=== PATIENT | female | born 1980 | race Caucasian/White ===

== ENCOUNTER 2018-09-13 19:04 | Emergency (ER) | payer MEDICAID ==
[~2018-09-13] VITALS: Ht 180.3 cm; Wt 99.8 kg
--- NOTE | 2018-09-13 19:11 | NUR ---
ED Nurse Note: walked in to ED due to possible kidney stone. pt has pain on back that radiated to pelvic area for 3 weeks. seen by [facility] on 09/05/18. hx of kidney stone.
[2018-09-13] MEDS ORDERED: TAMSULOSIN HCL0.4 MG ORAL ×2 (19:12→20:50)
--- NOTE | 2018-09-13 19:28 | Emergency Room Report ---
History of Present Illness General Chief Complaint: General Complaint Source: Patient Present Illness HPI Patient present with complaints of right-sided flank pain radiation to the lower abdominal area Pain has been ongoing for the past 3 weeks now Patient was seen at [facility] about 10 days ago diagnosed with a kidney stone As the patient had blood in her urine however there has been no other imaging Patient saw her primary physician today And was sent into the ER for imaging Patient has pain localized to the flank area radiation to the lower abdomen Also increased nausea Denies any fall or trauma Allergies: Coded Allergies: SULFA (SULFONAMIDE ANTIBIOTICS) (Verified Allergy, Unknown, 09/13/18) Patient History Past Medical History: see triage record Pertinent Family History: none Last Menstrual Period: 08/25/18 Reviewed Nursing Documentation: PMH: Agreed; PSxH: Agreed Nursing Documentation-PMH Past Medical History: No History, Except For Hx Cardiac Problems: No - kidney stone Review of Systems All Other Systems: negative except mentioned in HPI Physical Exam Vital Signs Date Time Temp Pulse Resp B/P (MAP) Pulse Ox O2 Delivery O2 Flow Rate FiO2 09/13/18 19:07 98.2 82 18 110/72 98 Room Air Sp02 EP Interpretation: reviewed, normal General Appearance: well appearing, no apparent distress Head: normocephalic, atraumatic Eyes: bilateral eye PERRL, bilateral eye EOMI ENT: hearing grossly normal, normal pharynx, TMs + canals normal, uvula midline Neck: full range of motion, supple, no meningismus, no bony tend Respiratory: lungs clear, normal breath sounds, no rhonchi, no respiratory distress, no retraction, no accessory muscle use Cardiovascular #1: normal peripheral pulses, regular rate, rhythm, no edema, no gallop, no JVD, no murmur Gastrointestinal: normal bowel sounds, non tender, soft, no mass, no organomegaly, non-distended, no guarding, no hernia, no pulsatile mass, no rebound Genitourinary: no CVA tenderness - However subjective reports the right flank region Musculoskeletal: normal inspection Neurologic: oriented x3, responsive, 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, motor strength/ tone normal, sensory intact Psychiatric: mood/affect normal Skin: normal color, no rash, warm/dry, palpation normal Lymphatic: normal inspection, no adenopathy Medical Decision Making Diagnostic Impression: Primary Impression: Renal colic on right side Additional Impression: Ovarian cyst ER Course With the history exam and presentation, multiple differentials considered, including but not limited to appendicitis, gastritis, cholecystitis, diverticulitis Patient CT imaging does reveal a 5 mm distal ureteral stone there is some obstructive pathology to this Patient's pain is significantly improved urine sample does not show any obvious infection Patient reports that she had otherwise fairly extensive workup recently at [facility] however did not had imaging Given the patient's improvement and resolution of discomfort We discussed further inpatient care versus close outpatient follow-up patient reports that she feels better and will attempt outpatient follow-up Labs Test 09/13/18 19:30 Urine Color Pale yellow Urine Appearance Clear Urine pH 6 (4.5-8.0) Urine Specific [place] 1.020 (1.005-1.035) Urine Protein 1+ (NEGATIVE) Urine Glucose (UA) Negative (NEGATIVE) Urine Ketones Negative (NEGATIVE) Urine Blood 4+ (NEGATIVE) Urine Nitrite Negative (NEGATIVE) Urine Bilirubin Negative (NEGATIVE) Urine Urobilinogen Normal MG/DL (0.0-1.0) Urine Leukocyte Esterase 1+ (NEGATIVE) Urine RBC 5-10 /HPF (0 - 2) Urine WBC 0-2 /HPF (0 - 2) Urine Squamous Epithelial Cells Few /LPF (NONE/OCC) Urine Bacteria Occasional /HPF (NONE) Urine HCG, Qualitative Negative (NEGATIVE) CT/MRI/US Diagnostic Results CT/MRI/US Diagnostic Results : Impression CT abdomen pelvisImpression: Positive for 5 mm distal right ureteral calculus, located approximately 5 cm proximal to the ureterovesical junction. This results in only mild right hydronephrosis and hydroureter 3.7 right or ovarian cyst is benign and no further follow-up is necessary Last Vital Signs Date Time Temp Pulse Resp B/P (MAP) Pulse Ox O2 Delivery O2 Flow Rate FiO2 09/13/18 19:07 98.2 82 18 110/72 98 Room Air Status: improved Disposition: HOME, SELF-CARE Condition: Improved Scripts Acetaminophen With Codeine (T#3) (TYLENOL #3 TAB*) Y Tab 1 TAB ORAL Q8H PRN for For Pain, #12 TAB Prov: Radha Fox DO 09/13/18 Tamsulosin Hcl (TAMSULOSIN HCL*) 0.4 Mg Cap.er.24h 0.4 MG ORAL BEDTIME for 7 Days, CAP Prov: Radha Fox DO 09/13/18 Ibuprofen* (MOTRIN*) 600 Mg Tablet 600 MG ORAL Q8H PRN for For Pain, #20 TAB 0 Refills Prov: Radha Fox DO 09/13/18 Additional Instructions: Patient is provided with the discharge instructions notified to follow up with primary doctor in the next 2-3 days otherwise return to the er with any worsening symptoms. Please note that this report is being documented using [employer] technology. This can lead to erroneous entry secondary to incorrect interpretation by the dictating instrument. Radha Fox DO Sep 13, 2018 19:28
[2018-09-13] MEDS ORDERED: Ketorolac 60mg Inj IM ONE (19:30)
[2018-09-13 19:48] VITALS: BP 110/72
[2018-09-13 19:54] LABS: APPEARANCE,URINE CLEAR; BILIRUBIN, URINE NEGATIVE (NEGATIVE); GLUCOSE, URINE (UA) NEGATIVE (NEGATIVE); KETONES,URINE NEGATIVE (NEGATIVE); LEUKOCYTE ESTERASE ,URINE 1+ (NEGATIVE); NITRITE,URINE NEGATIVE (NEGATIVE); PH,URINE 6 (4.5-8.0); PROTEIN,URINE 1+ (NEGATIVE); UROBILINOGEN,URINE NORMAL MG/DL (0.0-1.0)
[2018-09-13 19:55] LABS: COLOR,URINE PALE YELLOW
[2018-09-13 20:49] VITALS: BP 108/75
[2018-09-13] MEDS ORDERED: ACETAMINOPHEN-1 EAC1 ORAL (20:50)
[2018-09-13] MEDS ORDERED: IBUPROFEN600 MG ORAL (20:50)
--- NOTE | 2018-09-13 20:55 | NUR ---
ER DISCHARGE NOTE: Patient is cleared to be discharged per ERMD, pt is aox4, on room air, with stable vital signs. pt was given dc and prescription instructions, pt was able to verbalize understanding, pt id band and removed without complications. pt is able to ambulate with steady gait. pt took all belongings.
--- NOTE | 2018-09-14 09:34 | Diagnostic Imaging Report ---
Indication: Right-sided flank pain radiating to the lower abdominal area, history of urinary calculi Technique: Spiral acquisitions obtained through the abdomen and pelvis. No oral or IV contrast utilized, per urinary stone protocol. Multiplanar reconstructions were generated. Total dose length product 973.57 mGycm. CTDIvol(s) 16.82 mGy. Dose reduction achieved using automated exposure control Comparison: none Findings: There is a 5 mm calculus within the distal right ureter, located approximately 5 cm proximal to the ureterovesical junction this results in mild right hydroureter, only minimal right hydronephrosis. There is no significant perinephric fat stranding. A 4 mm calculus is seen with in the right lower pole calyx. A tiny punctate calculus is seen in the upper pole collecting system on the left. No left ureteral calculi, hydronephrosis, or hydroureter demonstrated. Lack of IV contrast limits assessment of the renal parenchyma. No gross renal parenchymal mass or cyst demonstrated. Lack of IV contrast limits assessment of the other solid organs. The liver, gallbladder, bile ducts, pancreas, adrenals are unremarkable. The spleen demonstrates an accessory splenule, is otherwise unremarkable. There is a 3.7 cm right ovarian cyst. Uterus and left ovary are unremarkable. The appendix is normal. There is no evidence of diverticulosis or diverticulitis. No small bowel distention. No free or loculated intraperitoneal gas or fluid is evident. Distal esophagus, stomach, duodenum are unremarkable. The included lung bases are clear. The bones are unremarkable Impression: Positive for 5 mm distal right ureteral calculus, located approximately 5 cm proximal to the ureterovesical junction. This results in only mild right hydronephrosis and hydroureter 3.7 right or ovarian cyst is benign and no further follow-up is necessary The CT scanner at [facility] is accredited by the [employer] and the scans are performed using protocols designed to limit radiation exposure to as low as reasonably achievable to attain images of sufficient resolution adequate for diagnostic evaluation.
== END 2018-09-13 21:00 | disposition home or self-care (01) ==
LOC: EMR 19:50
DX: N20.1 Calculus of ureter (principal)
CPT/HCPCS: 74176; 81003; 81025; 96372; 99284

== ENCOUNTER 2018-09-17 09:48 | Emergency (ER) | payer MEDICAID ==
[~2018-09-17] VITALS: Ht 177.8 cm; Wt 99.8 kg
[~2018-09-17 09:48] MED LIST: ACETAMINOPHEN-1 EAC1 ORAL; IBUPROFEN600 MG ORAL; TAMSULOSIN HCL0.4 MG ORAL
[2018-09-17 09:54] VITALS: BP 122/72
[2018-09-17] MEDS ORDERED: Ketorolac 30mg Inj IV ONE (10:00)
[2018-09-17] MEDS ORDERED: Morphine Sulfate 4mg/ml Inj (IV USE ONLY) IVP ONE (10:00)
--- NOTE | 2018-09-17 10:03 | Emergency Room Report ---
History of Present Illness General Chief Complaint: Abdominal Pain Source: Patient, Medical Record (Villa Luke MD) Present Illness HPI Patient is a 38-year-old female who presented after increased right-sided flank pain associated with nausea and vomiting. Patient had prior history of kidney stones and had recent CT imaging which showed a UVJ stone approximately 6 mm. Patient reports having multiple episodes of nonbilious vomiting. She reports having some increased pain with urination. She is not currently taking antibiotics. Patient been taking Flomax as well as ibuprofen and Tylenol with codeine.Pain was severe in intensity sharp right-sided. Patient states that she been having associated vomiting. (Villa Luke MD) Allergies: Coded Allergies: SULFA (SULFONAMIDE ANTIBIOTICS) (Verified Allergy, Unknown, 09/13/18) Patient History Past Medical History: see triage record Last Menstrual Period: 08/30/18 Reviewed Nursing Documentation: PMH: Agreed; PSxH: Agreed (Villa Luke MD) Nursing Documentation-PMH Past Medical History: No History, Except For Hx Cardiac Problems: No - kidney stone (Villa Luke MD) Review of Systems All Other Systems: negative except mentioned in HPI (Villa Luke MD) Physical Exam Vital Signs Date Time Temp Pulse Resp B/P (MAP) Pulse Ox O2 Delivery O2 Flow Rate FiO2 09/17/18 09:54 97.7 85 16 122/72 100 Room Air Sp02 EP Interpretation: reviewed, normal General Appearance: alert, GCS 15, moderate distress, obese Head: atraumatic ENT: normal ENT inspection, hearing grossly normal, normal voice Neck: normal inspection, full range of motion, supple, no bony tend Respiratory: normal inspection, lungs clear, normal breath sounds, no respiratory distress, no retraction, no wheezing Cardiovascular #1: regular rate, rhythm, no edema Gastrointestinal: normal inspection, normal bowel sounds, non tender, soft, no guarding, no hernia Genitourinary: no CVA tenderness Musculoskeletal: normal inspection, back normal, normal range of motion Neurologic: normal inspection, alert, oriented x3, responsive, 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 Patient presented for flank pain. Differential diagnosis included was not limited to pneumonia, renal stone, rib fracture, pulmonary embolism, ulcer, enteritis, pyelonephritis among others. Because of complexity of patient's case laboratory testing and imaging studies were ordered.Laboratory testing showed normal white blood count. Patient was noted to have some increased right flank pain associate with nausea and vomiting. This may be due to patient 's recent onset of codeine use. Patient's was noted to have some bacteriuria and was started on IV antibiotics. Patient ultrasound showed no evidence of hydronephrosis and patient was noted to have improvement in her pain after medications. Patient was advised to continue ibuprofen and to follow-up with urology. Labs Test 09/17/18 10:05 09/17/18 10:55 09/17/18 11:25 White Blood Count 10.0 K/UL (4.8-10.8) Red Blood Count 4.86 M/UL (4.20-5.40) Hemoglobin 14.6 G/DL (12.0-16.0) Hematocrit 44.1 % (37.0-47.0) Mean Corpuscular Volume 91 FL (80-99) Mean Corpuscular Hemoglobin 30.0 PG (27.0-31.0) Mean Corpuscular Hemoglobin Concent 33.0 G/DL (32.0-36.0) Red Cell Distribution Width 10.9 % (11.6-14.8) Platelet Count 320 K/UL (150-450) Mean Platelet Volume 6.2 FL (6.5-10.1) Neutrophils (%) (Auto) 80.4 % (45.0-75.0) Lymphocytes (%) (Auto) 14.1 % (20.0-45.0) Monocytes (%) (Auto) 4.4 % (1.0-10.0) Eosinophils (%) (Auto) 0.6 % (0.0-3.0) Basophils (%) (Auto) 0.5 % (0.0-2.0) Prothrombin Time 10.5 SEC (9.30-11.50) Prothromb Time International Ratio 1.0 (0.9-1.1) Activated Partial Thromboplast Time 25 SEC (23-33) Sodium Level 137 MMOL/L (136-145) Potassium Level 4.0 MMOL/L (3.5-5.1) Chloride Level 103 MMOL/L (98-107) Carbon Dioxide Level 23 MMOL/L (21-32) Anion Gap 11 mmol/L (5-15) Blood Urea Nitrogen 14 mg/dL (7-18) Creatinine 1.2 MG/DL (0.55-1.30) Estimat Glomerular Filtration Rate 50.5 mL/min (>60) Glucose Level 135 MG/DL (74-106) Calcium Level 9.1 MG/DL (8.5-10.1) Total Bilirubin 0.4 MG/DL (0.2-1.0) Aspartate Amino Transf (AST/SGOT) 11 U/L (15-37) Alanine Aminotransferase (ALT/SGPT) 21 U/L (12-78) Alkaline Phosphatase 71 U/L (46-116) Total Protein 7.7 G/DL (6.4-8.2) Albumin 4.2 G/DL (3.4-5.0) Globulin 3.5 g/dL Albumin/Globulin Ratio 1.2 (1.0-2.7) Lipase 155 U/L (73-393) Urine Color Yellow Urine Appearance Slightly cloudy Urine pH 5 (4.5-8.0) Urine Specific [place] 1.025 (1.005-1.035) Urine Protein 2+ (NEGATIVE) Urine Glucose (UA) Negative (NEGATIVE) Urine Ketones 1+ (NEGATIVE) Urine Blood 5+ (NEGATIVE) Urine Nitrite Positive (NEGATIVE) Urine Bilirubin Negative (NEGATIVE) Urine Urobilinogen 1 MG/DL (0.0-1.0) Urine Leukocyte Esterase 1+ (NEGATIVE) Urine RBC 20-30 /HPF (0 - 2) Urine WBC 2-4 /HPF (0 - 2) Urine Squamous Epithelial Cells Occasional /LPF Urine Amorphous Sediment Few /LPF (NONE) Urine Bacteria Moderate /HPF (NONE) Urine HCG, Qualitative Negative (NEGATIVE) Lactic Acid Level 1.80 mmol/L (0.66-2.22) (Villa Luke MD) ER Course Patient had positive blood culture gram-positive cocci in cluster. I called patient and discussed findings. Patient had been seen here on 09/13 for kidney stone. Was seen here yesterday and noted to have UTI and is on antibiotics. Given history of kidney stone with hydronephrosis and UTI and positive blood culture I recommended that patient return today for IV antibiotics and admission. Patient agrees to plan (Ernst Aaron MD) Last Vital Signs Date Time Temp Pulse Resp B/P (MAP) Pulse Ox O2 Delivery O2 Flow Rate FiO2 09/17/18 09:54 97.7 85 16 122/72 100 Room Air Status: improved (Villa Luke MD) Disposition: HOME, SELF-CARE Condition: Stable Scripts Hydrocodone Bit/Acetaminophen 5-325* (NORCO 5-325*) 1 Each Tablet 1 TAB ORAL Q6H PRN for For Pain, #20 TAB 0 Refills Prov: Villa Luke MD 09/17/18 Cephalexin* (KEFLEX*) 500 Mg Capsule 500 MG ORAL EVERY 6 HOURS, #28 CAP Prov: Villa Luke MD 09/17/18 Villa Luke MD Sep 17, 2018 10:03 Ernst Aaron MD Sep 18, 2018 15:43
[2018-09-17 10:16] LABS: BASOPHILS % (AUTO) 0.5 % (0.0-2.0); EOSINOPHILS % (AUTO) 0.6 % (0.0-3.0); HEMATOCRIT 44.1 % (37.0-47.0); HEMOGLOBIN 14.6 G/DL (12.0-16.0); LYMPHOCYTES % (AUTO) 14.1 % (20.0-45.0); MEAN CORPUSCULAR VOLUME 91 FL (80-99); MONOCYTES % (AUTO) 4.4 % (1.0-10.0); NEUTROPHILS % (AUTO) 80.4 % (45.0-75.0); PLATELET COUNT 320 K/UL (150-450); RED BLOOD COUNT 4.86 M/UL (4.20-5.40); RED CELL DISTRIBUTION WIDTH 10.9 % (11.6-14.8)
[2018-09-17 10:26] LABS: ANION GAP 11 mmol/L (5-15); BLOOD UREA NITROGEN 14 mg/dL (7-18); CALCIUM 9.1 MG/DL (8.5-10.1); CARBON DIOXIDE 23 MMOL/L (21-32); CHLORIDE 103 MMOL/L (98-107); CREATININE 1.2 MG/DL (0.55-1.30); SODIUM 137 MMOL/L (136-145)
--- NOTE | 2018-09-17 10:26 | NUR ---
ED Nurse Note: PT. AAOX4. AMBULATORY. CAME IN TO ER DUE TO ABD PAIN SINCE THIS MORNING ON THE R LOWER QUADRANT ACCOMPANIED WITH N/V. DENIES DIARRHEA. WAS RECENTLY DIAGNOSED LAST TUESDAY WITH KIDNEY STONES. TOOK TYLENOL 3 AROUND 5AM BUT PAIN CAME BACK
--- NOTE | 2018-09-17 10:28 | NUR ---
ED Nurse Note: US AT THE BEDSIDE
[2018-09-17 10:39] LABS: ALANINE AMINOTRANSFERASE 21 U/L (12-78); ALBUMIN 4.2 G/DL (3.4-5.0); ALBUMIN/GLOBULIN RATIO 1.2 (1.0-2.7); ALKALINE PHOSPHATASE 71 U/L (46-116); ASPARTATE AMINO TRANSFERASE 11 U/L (15-37); BILIRUBIN,TOTAL 0.4 MG/DL (0.2-1.0)
--- NOTE | 2018-09-17 11:19 | Diagnostic Imaging Report ---
EXAM: US Abdomen Complete CLINICAL HISTORY: ABD PAIN TECHNIQUE: Real-time ultrasound of the abdomen (complete) with image documentation. COMPARISON: CT abdomen and pelvis dated 09/14/18 FINDINGS: Liver: Liver diameter of 14.85 cm. No visible parenchymal lesions. No intrahepatic biliary ductal dilatation. Gallbladder: Unremarkable. No gallstones. No wall thickening. No pericholecystic fluid. Common bile duct: Common bile duct diameter of 2 mm, within normal limits. Pancreas: Unremarkable as visualized. Pancreatic body and tail are obscured by bowel gas. Kidneys: Multiple shadowing echogenic foci throughout the right kidney, predominantly within the right renal pelvis, likely representing nonobstructing stones. Right kidney length 11.22 cm. Left kidney length 10.5 cm. Normal cortical thickness. No hydronephrosis. Spleen: Spleen diameter of 9.76 cm, within normal limits. Aorta: Visualized portions of the aorta appear unremarkable. Inferior vena cava: Visualized portions of the IVC appear unremarkable. Other findings: A 10.9 x 2.0 x 5.8 cm thin-walled anechoic structure in the left upper quadrant. IMPRESSION: 1. Multiple shadowing echogenic foci throughout the right kidney, likely representing nonobstructing stones. 2. A 10.9 x 2.0 x 5.8 cm thin-walled anechoic structure in the left upper quadrant. This is nonspecific, and likely represents fluid-filled stomach or loop of bowel as no abnormal fluid collection or cystic structure was identified on the comparison CT of the abdomen and pelvis from 4 days ago.
[2018-09-17 11:38] LABS: APPEARANCE,URINE SLIGHTLY CLOUDY; BILIRUBIN, URINE NEGATIVE (NEGATIVE); GLUCOSE, URINE (UA) NEGATIVE (NEGATIVE); KETONES,URINE 1+ (NEGATIVE); LEUKOCYTE ESTERASE ,URINE 1+ (NEGATIVE); NITRITE,URINE POSITIVE (NEGATIVE); PH,URINE 5 (4.5-8.0); PROTEIN,URINE 2+ (NEGATIVE); UROBILINOGEN,URINE 1 MG/DL (0.0-1.0)
[2018-09-17 11:58] LABS: COLOR,URINE YELLOW
[2018-09-17] MEDS ORDERED: cefTRIAXone 1 GM in NS 55 ML IVPB ONE (12:00)
[2018-09-17] MEDS ORDERED: CEPHALEXIN500 MG ORAL (12:01)
[2018-09-17] MEDS ORDERED: NORCO 5-325 TA1 EACH ORAL (12:01)
[2018-09-17 12:57] VITALS: BP 118/60
--- NOTE | 2018-09-17 12:58 | NUR ---
ER DISCHARGE NOTE: Patient is cleared to be discharged per ERMD, pt is aox4, on room air, with stable vital signs. pt was given dc and prescription instructions, pt was able to verbalize understanding, pt id band and iv site removed without complications. pt is able to ambulate with steady gait. pt took all belongings.
== END 2018-09-17 12:58 | disposition home or self-care (01) ==
LOC: EMR 10:10
DX: N20.1 Calculus of ureter (principal); Z88.2 Allergy status to sulfonamides
CPT/HCPCS: 36415; 76700; 80053; 81003; 81025; 83605; 83690; 85025; 85610; 85730; 87040; 87086; 96361; 96365; 96375; 99284; J0696; J1885; J2270; J2405

== ENCOUNTER 2018-09-21 13:54 | Emergency (ER) | payer MEDICAID ==
[~2018-09-21] VITALS: Ht 177.8 cm; Wt 99.8 kg
[~2018-09-21 13:54] MED LIST changes: +CEPHALEXIN500 MG ORAL; +NORCO 5-325 TA1 EACH ORAL
--- NOTE | 2018-09-21 14:15 | NUR ---
ED Nurse Note: PT WALKED IN TO ER TODAY FROM HOME. AOX4. PT C/O DIFFICULTY URINATING X LAST NIGHT. PT ALSO C/O RIGHT LOWER BACK PAIN, 9/10 RADIATING TO PELVIC AREA, NAUSEA AND MULTIPLE EPISODES OF VOMITING X THIS MORNING. PT STATES SHE HAS HX OF KIDNEY STONES AND HAS BEEN SEEN AT [facility] MULTIPLE TIMES THIS MONTH FOR SIMILAR SYMPTOMS.
[2018-09-21 14:16] VITALS: BP 129/89
--- NOTE | 2018-09-21 14:25 | NUR ---
ED Nurse Note: PT STATES THERE IS NO POSSIBLITY THAT SHE IS .
[2018-09-21] MEDS ORDERED: Ketorolac 30mg Inj IV ONE (14:30)
[2018-09-21] MEDS ORDERED: Morphine Sulfate 4mg/ml Inj (IV USE ONLY) IVP ONE (14:30)
--- NOTE | 2018-09-21 14:30 | NUR ---
ED Nurse Note: REPORT GIVEN TO LOUIS AVALOS.
[2018-09-21 14:51] LABS: BASOPHILS % (AUTO) 0.5 % (0.0-2.0); EOSINOPHILS % (AUTO) 0.9 % (0.0-3.0); HEMOGLOBIN 13.8 G/DL (12.0-16.0); LYMPHOCYTES % (AUTO) 13.8 % (20.0-45.0); MEAN CORPUSCULAR VOLUME 90 FL (80-99); MONOCYTES % (AUTO) 7.1 % (1.0-10.0); NEUTROPHILS % (AUTO) 77.8 % (45.0-75.0); PLATELET COUNT 317 K/UL (150-450); RED BLOOD COUNT 4.57 M/UL (4.20-5.40); RED CELL DISTRIBUTION WIDTH 10.8 % (11.6-14.8); WHITE BLOOD COUNT 10.7 K/UL (4.8-10.8)
[2018-09-21 14:52] LABS: APPEARANCE,URINE SLIGHTLY CLOUDY; BILIRUBIN, URINE NEGATIVE (NEGATIVE); COLOR,URINE PALE YELLOW; GLUCOSE, URINE (UA) NEGATIVE (NEGATIVE); KETONES,URINE NEGATIVE (NEGATIVE); LEUKOCYTE ESTERASE ,URINE 1+ (NEGATIVE); NITRITE,URINE NEGATIVE (NEGATIVE); PH,URINE 5 (4.5-8.0); PROTEIN,URINE 1+ (NEGATIVE); UROBILINOGEN,URINE NORMAL MG/DL (0.0-1.0)
[2018-09-21 15:05] LABS: ANION GAP 12 mmol/L (5-15); BLOOD UREA NITROGEN 17 mg/dL (7-18); CALCIUM 9.2 MG/DL (8.5-10.1); CARBON DIOXIDE 26 MMOL/L (21-32); CHLORIDE 101 MMOL/L (98-107); CREATININE 1.3 MG/DL (0.55-1.30); POTASSIUM 3.5 MMOL/L (3.5-5.1); SODIUM 139 MMOL/L (136-145)
[2018-09-21 15:10] LABS: ALANINE AMINOTRANSFERASE 21 U/L (12-78); ALBUMIN 4.3 G/DL (3.4-5.0); ALBUMIN/GLOBULIN RATIO 1.3 (1.0-2.7); ALKALINE PHOSPHATASE 76 U/L (46-116); ASPARTATE AMINO TRANSFERASE 16 U/L (15-37); BILIRUBIN,TOTAL 0.5 MG/DL (0.2-1.0)
[2018-09-21 15:15] VITALS: BP 132/85
[2018-09-21] MEDS ORDERED: ONDANSETRON ODT4 MG BC (15:41)
[2018-09-21] MEDS ORDERED: TAMSULOSIN HCL0.4 MG ORAL (15:41)
[2018-09-21] MEDS ORDERED: CIPROFLOXACIN500 M2 ORAL (15:41)
--- NOTE | 2018-09-21 16:28 | Emergency Room Report ---
History of Present Illness General Chief Complaint: General Complaint Source: Patient Present Illness HPI 38-year-old female presents ED for evaluation. Patient is here complaining of right flank pain with vomiting. History of kidney stones. Was seen here several times recently. Was admitted 2 days ago after having positive blood culture. Patient left AMA as she was admitted here and then was to be transferred to another hospital because of insurance. Patient states pain returned today. Sharp, 8 out of 10, nonradiating. No other aggravating relieving factors. Denies any other associated symptoms Allergies: Coded Allergies: SULFA (SULFONAMIDE ANTIBIOTICS) (Verified Allergy, Unknown, 09/13/18) Patient History Past Medical History: none Past Surgical History: none Pertinent Family History: none Social History: Denies: smoking, alcohol use, drug use Last Menstrual Period: now Now: No Immunizations: UTD Reviewed Nursing Documentation: PMH: Agreed; PSxH: Agreed Nursing Documentation-PMH Past Medical History: No History, Except For Hx Cardiac Problems: No - kidney stone Review of Systems All Other Systems: negative except mentioned in HPI Physical Exam Vital Signs Date Time Temp Pulse Resp B/P (MAP) Pulse Ox O2 Delivery O2 Flow Rate FiO2 09/21/18 14:01 98.2 92 20 11/75 99 Room Air Sp02 EP Interpretation: reviewed, normal General Appearance: no apparent distress, alert, GCS 15, non-toxic Head: normocephalic, atraumatic Eyes: bilateral eye normal inspection, bilateral eye PERRL ENT: hearing grossly normal, normal pharynx, no angioedema, normal voice Neck: full range of motion, supple/symm/no masses Respiratory: chest non-tender, lungs clear, normal breath sounds, speaking full sentences Cardiovascular #1: regular rate, rhythm, no edema Cardiovascular #2: 2+ carotid (R), 2+ carotid (L), 2+ radial (R), 2+ radial (L) , 2+ dorsalis pedis (R), 2+ dorsalis pedis (L) Gastrointestinal: normal bowel sounds, non tender, soft, non-distended, no guarding, no rebound Rectal: deferred Genitourinary: normal inspection, CVA tenderness (R) Musculoskeletal: back normal, gait/station normal, normal range of motion, non- tender Neurologic: alert, oriented x3, responsive, motor strength/tone normal, sensory intact, speech normal Psychiatric: judgement/insight normal, memory normal, mood/affect normal, no suicidal/homicidal ideation Reflexes: 3+ bicep (R), 3+ bicep (L), 3+ tricep (R), 3+ tricep (L), 3+ knee (R) , 3+ knee (L) Skin: normal color, no rash, warm/dry, well hydrated Lymphatic: no adenopathy Medical Decision Making Diagnostic Impression: Primary Impression: Ureteral stone ER Course Hospital Course 38-year-old F presents to ED with R flank pain Differential diagnosis includes-appendicitis, cholecystitis, kidney stone, pyelonephritis Clinical course Patient placed on stretcher. After initial history and physical I ordered labs , IV fluids, pain medications, zofran Labs - no leukocytosis, electrolytes ok, LFTs normal, UA - some blood, no bacteria I reviewed EMR. I saw this patient 2 days ago. I recalled patient for positive blood culture and admitted patient to the hospital. We repeated blood cultures as well. We gave IV antibiotics. Repeat blood cultures grew no bacteria. I reviewed initial blood culture each ultimately grew staph Hominus which is likely contaminated Given negative blood cultures and clinical improvement I believe patient be safely discharged to home at this time. Patient agrees with plan. Patient states she has some Obion and Motrin. She ran out of Flomax and Zofran. We'll also provide urology referral I feel this is a highly complex case requiring extensive working including EKG/ Rhythm strip, Xray/CT/US, Blood/urine lab work, repeat exams while in ED, and administration of strong opiates/narcotics for pain control, admission to hospital or close patient follow up. Diagnosis - kidney stone Stable and discharged to home with Rx zofran, cipro, Flomax. Followup with PMD/ urology. Return to ED if symptoms recur or worsen Labs Test 09/21/18 14:30 White Blood Count 10.7 K/UL (4.8-10.8) Red Blood Count 4.57 M/UL (4.20-5.40) Hemoglobin 13.8 G/DL (12.0-16.0) Hematocrit 41.0 % (37.0-47.0) Mean Corpuscular Volume 90 FL (80-99) Mean Corpuscular Hemoglobin 30.3 PG (27.0-31.0) Mean Corpuscular Hemoglobin Concent 33.7 G/DL (32.0-36.0) Red Cell Distribution Width 10.8 % (11.6-14.8) Platelet Count 317 K/UL (150-450) Mean Platelet Volume 6.2 FL (6.5-10.1) Neutrophils (%) (Auto) 77.8 % (45.0-75.0) Lymphocytes (%) (Auto) 13.8 % (20.0-45.0) Monocytes (%) (Auto) 7.1 % (1.0-10.0) Eosinophils (%) (Auto) 0.9 % (0.0-3.0) Basophils (%) (Auto) 0.5 % (0.0-2.0) Urine Color Pale yellow Urine Appearance Slightly cloudy Urine pH 5 (4.5-8.0) Urine Specific [place] 1.025 (1.005-1.035) Urine Protein 1+ (NEGATIVE) Urine Glucose (UA) Negative (NEGATIVE) Urine Ketones Negative (NEGATIVE) Urine Blood 5+ (NEGATIVE) Urine Nitrite Negative (NEGATIVE) Urine Bilirubin Negative (NEGATIVE) Urine Urobilinogen Normal MG/DL (0.0-1.0) Urine Leukocyte Esterase 1+ (NEGATIVE) Urine RBC 30-40 /HPF (0 - 2) Urine WBC 0-2 /HPF (0 - 2) Urine Squamous Epithelial Cells Occasional /LPF Urine Bacteria None /HPF (NONE) Urine HCG, Qualitative Negative (NEGATIVE) Sodium Level 139 MMOL/L (136-145) Potassium Level 3.5 MMOL/L (3.5-5.1) Chloride Level 101 MMOL/L (98-107) Carbon Dioxide Level 26 MMOL/L (21-32) Anion Gap 12 mmol/L (5-15) Blood Urea Nitrogen 17 mg/dL (7-18) Creatinine 1.3 MG/DL (0.55-1.30) Estimat Glomerular Filtration Rate 46.1 mL/min (>60) Glucose Level 99 MG/DL (74-106) Calcium Level 9.2 MG/DL (8.5-10.1) Total Bilirubin 0.5 MG/DL (0.2-1.0) Aspartate Amino Transf (AST/SGOT) 16 U/L (15-37) Alanine Aminotransferase (ALT/SGPT) 21 U/L (12-78) Alkaline Phosphatase 76 U/L (46-116) Total Protein 7.6 G/DL (6.4-8.2) Albumin 4.3 G/DL (3.4-5.0) Globulin 3.3 g/dL Albumin/Globulin Ratio 1.3 (1.0-2.7) Lipase 126 U/L (73-393) Last Vital Signs Date Time Temp Pulse Resp B/P (MAP) Pulse Ox O2 Delivery O2 Flow Rate FiO2 09/21/18 14:16 77 13 Room Air 09/21/18 14:16 98.4 129/89 100 Status: improved Disposition: HOME, SELF-CARE Condition: Stable Scripts Ciprofloxacin Hcl* (CIPROFLOXACIN HCL*) 500 Mg Tablet 500 MG ORAL Q12H for 7 Days, #14 TAB 0 Refills Prov: Ernst Aaron MD 09/21/18 Ondansetron Odt* (ZOFRAN ODT*) 4 Mg Tab.rapdis 4 MG BC EVERY 8 HOURS, #10 TAB 0 Refills Prov: Ernst Aaron MD 09/21/18 Tamsulosin Hcl (TAMSULOSIN HCL*) 0.4 Mg Cap.er.24h 0.4 MG ORAL BEDTIME, #10 CAP Prov: Ernst Aaron MD 09/21/18 Referrals: Arash Reza M.D. Patient Instructions: Renal Colic, [id number] Ernst Aaron MD Sep 21, 2018 16:28
== END 2018-09-21 18:00 | disposition home or self-care (01) ==
LOC: EMR 16:07
DX: N20.1 Calculus of ureter (principal); Z87.442 Personal history of urinary calculi; Z88.2 Allergy status to sulfonamides
CPT/HCPCS: 36415; 80053; 81003; 81025; 83690; 85025; 96361; 96374; 96375; 99284; J1885; J2270; J2405